=== PATIENT | female | born 1985 | race Caucasian/White ===

== ENCOUNTER → 2017-05-20 | Outpatient (CLI) | payer OTHER ==
[~2017-05-20] MED LIST: DICY1TAB26 PO; ONDA4TAB7 PO
[2017-05-20 10:53] LABS: ANION GAP 7 MEQ/L (5-15); AST (GOT) 44 U/L (15-37); BICARBONATE 26.1 MEQ/L (21.0-32.0); BLOOD UREA NITROGEN 11 MG/DL (7-18); CHLORIDE 108 MEQ/L (98-107); GLOMERULAR FILTRATION RATE 89 ML/MIN (>89); GLUCOSE,FASTING 110 MG/DL (74-99); POTASSIUM 3.7 MEQ/L (3.5-5.1); SODIUM (NA) 141 MEQ/L (136-145)
[2017-05-20 10:56] LABS: RHEUMATOID FACTOR TRIGGER LESS THAN 10.0 IU/ML (0.0-14.9)
[2017-05-20 10:58] LABS: ALKALINE PHOSPHATASE 70 U/L (45-117); ALT (GPT) 77 U/L (10-53); TOTAL BILIRUBIN ADULT 0.5 MG/DL (0.2-1.0)
[2017-05-20 11:13] LABS: CREATINE KINASE 84 U/L (26-192)
== END ==
LOC: CLAB 10:01
PROVIDERS: ATTEND Family Medicine
DX: R42 Dizziness and giddiness (principal); M51.37 Other intervertebral disc degeneration, lumbosacral region; G89.4 Chronic pain syndrome; R55 Syncope and collapse; Z68.38 Body mass index [BMI] 38.0-38.9, adult
CPT/HCPCS: 36415; 80053; 82085; 82550; 85652; 86038; 86140; 86430

== ENCOUNTER 2018-03-22 02:32 | Emergency (ER) | payer OTHER ==
[~2018-03-22] VITALS: Ht 154.9 cm; Wt 95.0 kg
[2018-03-22 02:34] VITALS: BP 124/58; PULSE 102; RESP 18; TEMP 97.3; O2SAT 98
[2018-03-22] MEDS ORDERED: SODIUM CHLOR 0.9% 1000 ML INJ 1,000 ML IV SCH (02:58)
[2018-03-22] MEDS ORDERED: SODIUM CHLORIDE 0.9% FLUSH 10 ML FLUSH IV FLUSH PRN (03:00)
[2018-03-22] MEDS ORDERED: KETOROLAC TROMETHAMINE 30 MG/ML (IVP) VIAL IVP ONE (03:00)
--- NOTE | 2018-03-22 03:10 | PD ---
HPI Chief Complaint: Flank/Kidney Pain Time Seen by Provider: 02:58 Travel History International Travel<30 days: No Contact w/Intl Traveler<30days: No Traveled to known affect area: No History of Present Illness HPI 32-year-old female patient with history of previous kidney stones, presents to the ER today because she has had 1 week history of right sided abdominal pains and flank pains which she currently states is a 7 out of 10. She denies any nausea, vomiting, diarrhea, fevers, but states that she has had some mild dysuria. Modifying Factors: None Associated Signs & Symptoms: Right-sided abdominal pain for 1 week Risk Factors: History of kidney stones PFSH Past Medical History Gastrointestinal Disorders: Yes (IBS) Kidney Stones: Yes ?: Not Past Surgical History Surgical History: No Previous Surgery Social History Alcohol Use: No Tobacco Use: No Substance Use: No Allergies-Medications (Allergen,Severity, Reaction): Coded Allergies: penicillin G (Unverified Allergy, Severe, 03/22/18) Reported Meds & Prescriptions Reported Meds & Active Scripts Active Review of Systems Except as stated in HPI: all other systems reviewed are Neg Physical Exam Narrative GENERAL: Well-developed middle-age female patient currently in mild distress. Awake and oriented 3. SKIN: Focused skin assessment warm/dry. HEAD: Atraumatic. Normocephalic. EYES: Pupils equal and round. No scleral icterus. No injection or drainage. ENT: No nasal bleeding or discharge. Mucous membranes pink and moist. NECK: Trachea midline. No JVD. Supple. CARDIOVASCULAR: Regular rate and rhythm. No murmur appreciated. RESPIRATORY: No accessory muscle use. Clear to auscultation. Breath sounds equal bilaterally. GASTROINTESTINAL: Abdomen soft, mild right-sided abdominal tenderness without guarding or rebound, nondistended. Hepatic and splenic margins not palpable. MUSCULOSKELETAL: No obvious deformities. No clubbing. No cyanosis. No edema. NEUROLOGICAL: Awake and alert. No obvious cranial nerve deficits. Motor grossly within normal limits. Normal speech. PSYCHIATRIC: Appropriate mood and affect; insight and judgment normal. Data Data Last Documented VS Vital Signs Date Time Temp Pulse Resp B/P (MAP) Pulse Ox O2 Delivery O2 Flow Rate FiO2 03/22/18 04:05 18 03/22/18 03:25 71 131/84 (100) 99 Room Air 03/22/18 02:34 97.3 Orders Orders Complete Blood Count With Diff (03/22/18 02:58) Comprehensive Metabolic Panel (03/22/18 02:58) Lipase (03/22/18 02:58) Urinalysis - C+S If Indicated (03/22/18 02:58) Ct Abd/Pel W/O Iv Contrast (03/22/18 02:58) Iv Access Insert/Monitor (03/22/18 02:58) Ecg Monitoring (03/22/18 02:58) Oximetry (03/22/18 02:58) Sodium Chlor 0.9% 1000 Ml Inj (Ns 1000 M (03/22/18 02:58) Sodium Chloride 0.9% Flush (Ns Flush) (03/22/18 03:00) Ketorolac Inj (Toradol Inj) (03/22/18 03:00) Ed Urine Pregnancytest Poc (03/22/18 02:58) Urine Culture (03/22/18 03:15) Gc And Chlamydia Pcr (03/22/18 04:20) Wet Prep Profile (03/22/18 04:20) Ed Discharge Order (03/22/18 05:08) Labs Laboratory Tests Test 03/22/18 03:15 03/22/18 04:45 White Blood Count 9.7 TH/MM3 Red Blood Count 4.88 MIL/MM3 Hemoglobin 13.8 GM/DL Hematocrit 41.1 % Mean Corpuscular Volume 84.2 FL Mean Corpuscular Hemoglobin 28.2 PG Mean Corpuscular Hemoglobin Concent 33.5 % Red Cell Distribution Width 13.7 % Platelet Count 281 TH/MM3 Mean Platelet Volume 8.8 FL Neutrophils (%) (Auto) 48.3 % Lymphocytes (%) (Auto) 35.7 % Monocytes (%) (Auto) 10.0 % Eosinophils (%) (Auto) 5.2 % Basophils (%) (Auto) 0.8 % Neutrophils # (Auto) 4.7 TH/MM3 Lymphocytes # (Auto) 3.5 TH/MM3 Monocytes # (Auto) 1.0 TH/MM3 Eosinophils # (Auto) 0.5 TH/MM3 Basophils # (Auto) 0.1 TH/MM3 CBC Comment DIFF FINAL Differential Comment Urine Color YELLOW Urine Turbidity CLEAR Urine pH 5.0 Urine Specific Nunez 1.028 Urine Protein TRACE mg/dL Urine Glucose (UA) NEG mg/dL Urine Ketones NEG mg/dL Urine Occult Blood NEG Urine Nitrite NEG Urine Bilirubin NEG Urine Urobilinogen 2.0 MG/DL Urine Leukocyte Esterase MOD Urine WBC 1 /hpf Urine Squamous Epithelial Cells 1 /hpf Urine Bacteria MOD /hpf Urine Mucus FEW /lpf Microscopic Urinalysis Comment CULTURE INDICATED Blood Urea Nitrogen 11 MG/DL Creatinine 0.89 MG/DL Random Glucose 87 MG/DL Total Protein 7.7 GM/DL Albumin 3.6 GM/DL Calcium Level 8.4 MG/DL Alkaline Phosphatase 84 U/L Aspartate Amino Transf (AST/SGOT) 41 U/L Alanine Aminotransferase (ALT/SGPT) 64 U/L Total Bilirubin 0.3 MG/DL Sodium Level 142 MEQ/L Potassium Level 4.1 MEQ/L Chloride Level 107 MEQ/L Carbon Dioxide Level 27.0 MEQ/L Anion Gap 8 MEQ/L Estimat Glomerular Filtration Rate 74 ML/MIN Lipase 205 U/L Clue Cells (Wet Prep) PRESENT Vaginal Trichomonas (Wet Prep) NONE SEEN Vaginal Yeast (Wet Prep) NONE SEEN MDM Medical Decision Making Medical Screen Exam Complete: Yes Emergency Medical Condition: Yes Medical Record Reviewed: Yes Interpretation(s) Laboratory Tests Test 03/22/18 03:15 03/22/18 04:45 Monocytes (%) (Auto) 10.0 % (0.0-8.0) Eosinophils (%) (Auto) 5.2 % (0.0-4.0) Monocytes # (Auto) 1.0 TH/MM3 (0-0.9) Eosinophils # (Auto) 0.5 TH/MM3 (0-0.4) Urine Leukocyte Esterase MOD (NEG) Urine Bacteria MOD /hpf (NONE) Urine Mucus FEW /lpf (OCC) Calcium Level 8.4 MG/DL (8.5-10.1) Aspartate Amino Transf (AST/SGOT) 41 U/L (15-37) Alanine Aminotransferase (ALT/SGPT) 64 U/L (10-53) Estimat Glomerular Filtration Rate 74 ML/MIN (>89) Clue Cells (Wet Prep) PRESENT (NONE) Last 24 hours Impressions Abdomen/Pelvis CT 03/22/18 0258 Signed Impressions: Service Date/Time: Thursday, March 22, 2018 03:38 - CONCLUSION: 1. Tiny less than 1 mm nonobstructing right renal calculus. 2. Hepatic steatosis. Jaxon Juarez MD Differential Diagnosis Renal colic versus pyelonephritis versus colitis versus musculoskeletal Narrative Course UA shows small amount of white blood cell count significant for possible UTI. Wet prep does show clue cells concerning for bacterial vaginosis. CAT scan was unremarkable otherwise. At this point, my plan would be to treat her for both and have her follow-up with primary care doctor. Return for worsening in symptoms as necessary. The plan has been discussed with her and she states understanding. Diagnosis Primary Impression: UTI (urinary tract infection) Additional Impression: Bacterial vaginosis Med/Other Pt SpecificInfo: Prescription(s) given Scripts Ciprofloxacin (Cipro) 500 Mg Tab 500 MG PO BID for Infection for 3 Days, #6 TAB 0 Refills Prov: Keli Villasenor MD 03/22/18 Metronidazole (Flagyl) 500 Mg Tab 500 MG PO TID for Infection for 7 Days, TAB 0 Refills Prov: Keli Villasenor MD 03/22/18 Ibuprofen (Ibuprofen) 600 Mg Tab 600 MG PO Q6H Y for Pain/Inflammation, #20 TAB 0 Refills Prov: Keli Villasenor MD 03/22/18 Disposition: DISCHARGE HOME Condition: Stable Keli Villasenor MD March 22, 2018 03:10
[2018-03-22 03:16] VITALS: RESP 16
[2018-03-22 03:25] VITALS: BP 131/84; PULSE 71; RESP 16; O2SAT 99
[2018-03-22 03:27] LABS: BACTERIA, URINE MOD /hpf; BILIRUBIN, URINE NEG (NEG); BLOOD, URINE NEG (NEG); GLUCOSE,URINE NEG (NEG); KETONE, URINE NEG (NEG); MUCUS URINE FEW /lpf (OCC); NITRITE,URINE NEG (NEG); SQUAMOUS EPITHELIAL CELL URINE 1 /hpf (0-5); URINE COLOR YELLOW (YELLW/STRAW); URINE LEUKOCYTE ESTERASE MOD (NEG)
[2018-03-22 03:35] LABS: AUTOMATED NEUTROPHIL # 4.7 TH/MM3 (1.8-7.7); BASOPHIL # 0.1 TH/MM3 (0-0.2); BASOPHIL % 0.8 % (0.0-2.0); EOSINOPHIL # 0.5 TH/MM3 (0-0.4); EOSINOPHIL % 5.2 % (0.0-4.0); HEMATOCRIT 41.1 % (35.0-46.0); HEMOGLOBIN 13.8 GM/DL (11.6-15.3); LYMPH % 35.7 % (9.0-44.0); LYMPHOCYTE # 3.5 TH/MM3 (1.0-4.8); MEAN CELL VOLUME 84.2 FL (80.0-100.0); MEAN CORPUSCULAR HEMOGLOBIN 28.2 PG (27.0-34.0); MEAN CORPUSCULAR HGB CONC 33.5 % (32.0-36.0); MEAN PLATELET VOLUME 8.8 FL (7.0-11.0); NEUT % 48.3 % (16.0-70.0); PLATELET COUNT 281 TH/MM3 (150-450); RED BLOOD COUNT 4.88 MIL/MM3 (4.00-5.30); RED CELL DISTRIBUTION WIDTH 13.7 % (11.6-17.2); WHITE BLOOD COUNT 9.7 TH/MM3 (4.0-11.0)
[2018-03-22 03:45] LABS: ALKALINE PHOSPHATASE 84 U/L (45-117); TOTAL BILIRUBIN ADULT 0.3 MG/DL (0.2-1.0); TOTAL PROTEIN 7.7 GM/DL (6.4-8.2)
[2018-03-22 03:48] LABS: ALBUMIN 3.6 GM/DL (3.4-5.0); ALT (GPT) 64 U/L (10-53); AST (GOT) 41 U/L (15-37); BLOOD UREA NITROGEN 11 MG/DL (7-18); CALCIUM 8.4 MG/DL (8.5-10.1); CHLORIDE 107 MEQ/L (98-107); CREATININE 0.89 MG/DL (0.50-1.00); GLOMERULAR FILTRATION RATE 74 ML/MIN (>89); GLUCOSE,RANDOM 87 MG/DL (74-106); SODIUM (NA) 142 MEQ/L (136-145)
[2018-03-22 04:05] VITALS: RESP 18
--- NOTE | 2018-03-22 04:07 | RADRPT ---
EXAM DATE/TIME: 03/22/2018 03:38 [facility] COMPARISON: CT ABDOMEN & PELVIS W/O CONTRAST, June 11, 2016, 13:56. INDICATIONS : Right flank pain. ORAL CONTRAST: No oral contrast ingested. RADIATION DOSE: 8.55 CTDIvol (mGy) MEDICAL HISTORY : None SURGICAL HISTORY : None. ENCOUNTER: Initial ACUITY: 1 day PAIN SCALE: 7/10 LOCATION: Right flank abdomen TECHNIQUE: Volumetric scanning of the abdomen and pelvis was performed. Using automated exposure control and ad justment of the mA and/or kV according to patient size, radiation dose was kept as low as reasonably achievable to obtain optimal diagnostic quality images. DICOM format image data is available electro nically for review and comparison. FINDINGS: LOWER LUNGS: The visualized lower lungs are clear. LIVER: Homogeneous density without lesion. There is no dilation of the biliary tree. No calcified gallston es. The gallbladder is contracted. SPLEEN: Normal size without lesion. PANCREAS: Within normal limits. KIDNEYS: Normal in size and shape. There is no mass or hydronephrosis. There is a single tiny less than 1 mm right renal calculus. Ureters appear unremarkable. ADRENAL GLANDS: Within normal limits. VASCULAR: There is no aortic aneurysm. BOWEL/MESENTERY: The stomach, small bowel, and colon demonstrate no acute abnormality. There is no free intraperitone al air or fluid. ABDOMINAL WALL: Within normal limits. RETROPERITONEUM: There is no lymphadenopathy. BLADDER: No wall thickening or mass. REPRODUCTIVE: Within normal limits. INGUINAL: There is no lymphadenopathy or hernia. MUSCULOSKELETAL: Within normal limits for patient age. CONCLUSION: 1. Tiny less than 1 mm nonobstructing right renal calculus. 2. Hepatic steatosis. Jaxon Juarez MD on March 22, 2018 at 4:03 Board Certified Radiologist. This report was verified electronically.
[2018-03-22] MEDS ORDERED: METR-1 PO (05:15)
[2018-03-22] MEDS ORDERED: CIPR-9 PO (05:15)
[2018-03-22] MEDS ORDERED: IBUP-232 PO (05:15)
== END 2018-03-22 05:34 | disposition home or self-care (01) ==
LOC: NEPE 02:32
DX: N39.0 Urinary tract infection, site not specified (principal); N76.0 Acute vaginitis; B96.89 Other specified bacterial agents as the cause of diseases classified elsewhere; K58.9 Irritable bowel syndrome, unspecified; Z87.442 Personal history of urinary calculi; Z88.0 Allergy status to penicillin
CPT/HCPCS: 74176; 80053; 81001; 83690; 84703; 85025; 87086; 87210; 87491; 87591; 96361; 96374; 99284; J1885; J7030